=== PATIENT | female | born 1980 | race Caucasian/White ===

== ENCOUNTER 2018-08-08 14:41 | Outpatient (CLI) | payer OTHER, BC ==
[2018-08-08] MEDS ORDERED: MULT-516 PO (15:05)
[2018-08-08] MEDS ORDERED: FISH OIL PO (15:05)
== END 2018-08-08 23:59 | disposition home or self-care (01) ==
LOC: STAR 14:41
PROVIDERS: ATTEND Orthopaedic Surgery
DX: Z02.9 Encounter for administrative examinations, unspecified (principal)

== ENCOUNTER 2018-08-19 12:00 | Day surgery (SDC) | payer OTHER, BC ==
[~2018-08-19] VITALS: Ht 165.1 cm; Wt 92.7 kg
[~2018-08-19 12:00] MED LIST: FISH OIL PO; MULT-516 PO
[2018-08-19] MEDS ORDERED: LACTATED RINGERS 1,000 ML IV SCH (12:23)
[2018-08-19 12:30] LABS: HCG UR SG 1.025 (1.003-1.030)
[2018-08-19] MEDS ORDERED: ROPIvacaine/PF 0.5%, 30 ML ONE (12:33)
[2018-08-19] MEDS ORDERED: LIDOCAINE 1%-EPI 1:100K, 30ML ONE (12:33)
[2018-08-19 12:49] VITALS: BP 121/80
[2018-08-19] MEDS ORDERED: FENTANYL PF 100 MCG/2ML ONE ×2 (13:16→14:17)
[2018-08-19] MEDS ORDERED: MIDAZOLAM 1 MG/ML, 2ML ONE (13:18)
[2018-08-19] MEDS ORDERED: DIAZEPAM 5 MG TABLET PO ONE (13:30)
[2018-08-19] MEDS ORDERED: SCOPOLAMINE PATCH, 1.5MG PATCH.TD72 TD ONE (13:30)
[2018-08-19] MEDS ORDERED: ACETAMINOPHEN 500 MG TABLET PO ONE (13:30)
[2018-08-19] MEDS ORDERED: CEFAZOLIN 1,000 MG ONE (13:31)
[2018-08-19] MEDS ORDERED: PROPOFOL 10 MG/ML, 20ML ONE (13:31)
[2018-08-19] MEDS ORDERED: DEXAMETHASONE 4 MG/ML, 1ML ONE (13:31)
[2018-08-19] MEDS ORDERED: KETOROLAC 30 MG/1 ML ONE (13:31)
[2018-08-19] MEDS ORDERED: ROCURONIUM 10MG/ML,5ML ONE (13:31)
[2018-08-19] MEDS ORDERED: ONDANSETRON 2MG/ML, 2ML ONE (13:31)
[2018-08-19] MEDS ORDERED: PROMETHAZINE 25 MG/ML, 1ML IV PRN (14:00)
[2018-08-19] MEDS ORDERED: ALBUTEROL SULFATE 2.5 MG/3 ML NPPB PRN (14:00)
[2018-08-19] MEDS ORDERED: PROMETHAZINE 12.5 MG SUPP PR PRN (14:00)
[2018-08-19] MEDS ORDERED: MEPERIDINE/PF 25MG/0.5ML IVPush PRN (14:00)
[2018-08-19] MEDS ORDERED: LABETALOL 5MG/ML, 20ML IV PRN (14:00)
[2018-08-19] MEDS ORDERED: OXYcodone 5 MG/5 ML ORAL.SOL UDC PO PRN (14:00)
[2018-08-19] MEDS ORDERED: HALOPERIDOL 5 MG/ML IV PRN (14:00)
[2018-08-19] MEDS ORDERED: EPHEDRINE 50 MG/ML, 1ML IVPush PRN (14:00)
[2018-08-19] MEDS ORDERED: hydrALAzine 20 MG/ML, 1ML IV PRN (14:00)
[2018-08-19] MEDS ORDERED: MIDAZOLAM 1 MG/ML, 2ML IV PRN (14:00)
[2018-08-19] MEDS ORDERED: DIAZEPAM 5 MG/ML, 2ML IVPush PRN (14:00)
[2018-08-19] MEDS ORDERED: FENTANYL PF 100 MCG/2ML IV PRN (14:00)
[2018-08-19] MEDS ORDERED: ONDANSETRON ODT 8 MG PO PRN (14:00)
[2018-08-19] MEDS ORDERED: MORPHINE SULFATE 4 MG/ML, 1ML IVPush PRN (14:00)
[2018-08-19] MEDS ORDERED: ONDANSETRON 2MG/ML, 2ML IV PRN (14:00)
[2018-08-19] MEDS ORDERED: OXYcodone 5 MG/5 ML ORAL.SOL UDC ONE (14:17)
[2018-08-19] MEDS ORDERED: HYDROmorphone 1 MG/ML, 1ML ONE (14:26)
[2018-08-19] MEDS: HYDROmorphone 2 MG/ML, 1ML IVPush PRN ×2 (14:29→14:43)
== END 2018-08-19 16:05 | disposition home or self-care (01) ==
LOC: OUT 12:00
PROVIDERS: ATTEND Orthopaedic Surgery
DX: S83.282A Other tear of lateral meniscus, current injury, left knee, initial encounter (principal); S83.242A Other tear of medial meniscus, current injury, left knee, initial encounter; M65.862 Other synovitis and tenosynovitis, left lower leg; X58.XXXA Exposure to other specified factors, initial encounter; Y93.89 Activity, other specified; Y92.89 Other specified places as the place of occurrence of the external cause; Y99.8 Other external cause status
CPT/HCPCS: 29880; 81025; J0690; J1100; J1170; J1885; J2250; J2405; J2704; J2795; J3010; J3490; J7120

== ENCOUNTER → 2019-12-23 | Outpatient (CLI) | payer OTHER, BC | END | disposition home or self-care (01) | LOC: CFH 12:12 | PROVIDERS: ATTEND Clinical Nurse Specialist Women's Health | DX: N63.20 Unspecified lump in the left breast, unspecified quadrant (principal); Z80.3 Family history of malignant neoplasm of breast | CPT/HCPCS: 76642; 77066; G0279 ==

== ENCOUNTER 2019-12-27 10:02 | Emergency (ER) | payer OTHER, BC ==
[~2019-12-27] VITALS: Ht 165.1 cm; Wt 90.9 kg
[2019-12-27 10:03] VITALS: BP 140/81
--- NOTE | 2019-12-27 10:15 | NUR ---
PT IN BED, ATTACHED TO MONITORS. PT C/O PAIN ON PALPATION AT [facility] POINT. DENIES ANY FURTHER NEEDS OR CONCERNS, CALL LIGHT IN REACH.
[2019-12-27] MEDS ORDERED: SODIUM CHLORIDE FLUSH 10ML SYR IVF ONE (10:30)
--- NOTE | 2019-12-27 10:41 | NUR ---
PT UP TO RESTROOM WITH STRONG, INDEPENDENT GAIT. URINE COLLECTED AND SENT. IV STARTED, LABS DRAWN AND AT BEDSIDE. PT DENIES ANY FURTHER NEEDS AT THIS TIME. CALL LIGHT IN REACH.
[2019-12-27 10:58] LABS: BASOPHILS # (AUTO) 0.05 x10^3/uL (0-0.1); BASOPHILS % (AUTO) 1 % (0-1); EOSINOPHILS # (AUTO) 0.16 x10^3/uL (0-0.4); EOSINOPHILS % (AUTO) 2 % (1-7); LYMPHOCYTES # (AUTO) 3.18 x10^3/uL (1-3.4); LYMPHOCYTES % (AUTO) 32 % (22-44); MD NO; MEAN CORPUSCULAR HEMOGLOBIN 30.9 pg (27.0-34.8); MEAN CORPUSCULAR HGB CONC 32.5 g/dL (32.4-35.8); MEAN CORPUSCULAR VOLUME 95.1 fL (80-100); MEAN PLATELET VOLUME 8.7 fL (7.4-10.4); MONOCYTES # (AUTO) 1.06 x10^3/uL (0.2-0.8); MONOCYTES % (AUTO) 11 % (2-9); NEUTROPHILS # (AUTO) 5.65 x10^3/uL (1.8-6.8); NEUTROPHILS % (AUTO) 56 % (42-75); PLATELET COUNT 305 x10^3/uL (130-400); RED BLOOD COUNT 4.51 x10^6/uL (3.82-5.3); RED CELL DISTRIBUTION WIDTH 12.6 % (9.6-15.2)
[2019-12-27 11:03] LABS: MICROSCOPIC INDICATED
[2019-12-27 11:10] LABS: ALANINE AMINOTRANSFERASE 20 U/L (12-78); ALBUMIN 3.4 g/dL (3.4-5.0); ANION GAP 5 mmol/L (5-15); CALCIUM 9.2 mg/dL (8.5-10.1); CHLORIDE 108 mmol/L (98-107); CREATININE 0.71 mg/dL (0.55-1.02)
[2019-12-27 11:14] LABS: ALKALINE PHOSPHATASE 78 U/L (45-117); BILIRUBIN,TOTAL 0.8 mg/dL (0.2-1.0); TOTAL PROTEIN 7.6 g/dL (6.4-8.2)
--- NOTE | 2019-12-27 11:56 | NUR ---
PT IN CT AT THIS TIME.
[2019-12-27] MEDS ORDERED: OMNIPAQUE 350 MG/ML, 100ML BOTTLE ONE (12:03)
== END 2019-12-27 12:50 | disposition home or self-care (01) ==
LOC: ED 10:51
DX: K57.32 Diverticulitis of large intestine without perforation or abscess without bleeding (principal)
CPT/HCPCS: 36415; 74177; 80053; 81001; 84703; 85025; 87086; 99285; Q9967